=== PATIENT | female | born 1960 | race African-American/Black ===

== ENCOUNTER → 2016-12-04 | Outpatient (CLI) | payer BC ==
[2016-09-21 10:17] VITALS: BP 148/78
[~2016-12-04] MED LIST: CYCL10TA2 PO; NAPR375T3 PO
--- NOTE | 2016-12-04 13:36 | RAD ---
DATE: 12/04/2016 EXAM: DIGITAL SCREEN BILAT W/CAD HISTORY: Routine screening COMPARISON: 06/15/2015 This study was interpreted with the benefit of Computerized Aided Detection (CAD). FINDINGS: There are scattered fibroglandular densities in the breasts. No new or enlarging breast densities are seen. No suspicious microcalcifications are evident. IMPRESSION: Stable mammograms without evidence of malignancy. BI-RADS CATEGORY: 1 NEGATIVE RECOMMENDED FOLLOW-UP: 12M 12 MONTH FOLLOW-UP PQRS compliance statement: Patient information was entered into a reminder system with a target due date for the next mammogram. Mammography is a sensitive method for finding small breast cancers, but it does not detect them all and is not a substitute for careful clinical examination. A negative mammogram does not negate a clinically suspicious finding and should not result in delay in biopsying a clinically suspicious abnormality. "Our facility is accredited by the [employer] Mammography [employer]."
== END | disposition home or self-care (01) ==
LOC: MAMMO 08:55
PROVIDERS: ATTEND Family Medicine
DX: Z12.31 Encounter for screening mammogram for malignant neoplasm of breast (principal)
CPT/HCPCS: G0202; 77067

== ENCOUNTER → 2016-12-14 | Outpatient (CLI) | payer BC ==
[2016-09-21 10:17] VITALS: BP 148/78
[2016-12-14 07:49] LABS: BASO # 0.1 x10^3/uL (0.0-0.2); BASO % 1 % (0-3); EOS % 3 % (0-3); HEMATOCRIT 39.2 % (36.0-47.0); HEMOGLOBIN 12.8 g/dL (12.0-15.5); LYMPH # 3.9 x10^3/uL (1.0-4.8); LYMPH % 43 % (24-48); MEAN CORPUSCULAR HEMOGLOBIN 29 pg (25-35); MEAN CORPUSCULAR HGB CONC 33 g/dL (31-37); MEAN CORPUSCULAR VOLUME 89 fL (79-100); MONO % 6 % (0-9); NEUT % 47 % (31-73); PLATELET COUNT 296 x10^3/uL (140-400); RED CELL DISTRIBUTION WIDTH 14.2 % (11.5-14.5); WHITE BLOOD COUNT 9.1 x10^3/uL (4.0-11.0)
[2016-12-14 08:07] LABS: ALBUMIN 3.4 g/dL (3.4-5.0); ALBUMIN/GLOBULIN RATIO 0.8 (1.0-1.7); CALCIUM 9.2 mg/dL (8.5-10.1); CREATININE 0.9 mg/dL (0.6-1.0); GFR 77.8; POTASSIUM 4.2 mmol/L (3.5-5.1); TOTAL BILIRUBIN 0.5 mg/dL (0.2-1.0); TOTAL PROTEIN 7.5 g/dL (6.4-8.2)
[2016-12-14 08:08] LABS: CHOLESTEROL/HDL RATIO 2.4
[2016-12-14 13:24] LABS: FSH 130.5 mIU/mL (.); LUTEINIZING HORMONE 49.7 mIU/mL (.)
== END | disposition home or self-care (01) ==
LOC: LAB 07:19
PROVIDERS: ATTEND Family Medicine
DX: I10 Essential (primary) hypertension (principal); E78.5 Hyperlipidemia, unspecified; N95.1 Menopausal and female climacteric states
CPT/HCPCS: 36415; 80053; 80061; 83001; 83002; 85027

== ENCOUNTER → 2017-10-16 | Outpatient (CLI) | payer OTHER | END | disposition home or self-care (01) | LOC: MAMMO 08:04 | DX: Z12.31 Encounter for screening mammogram for malignant neoplasm of breast (principal) | CPT/HCPCS: 77067 ==

== ENCOUNTER → 2017-10-31 | Outpatient (CLI) | payer OTHER ==
[2017-10-31 09:33] LABS: ADD MAN DIFF? NO
[2017-10-31 09:41] LABS: BASO # 0.1 x10^3/uL (0.0-0.2); BASO % 1 % (0-3); EOS # 0.2 x10^3/uL (0.0-0.7); EOS % 3 % (0-3); HEMATOCRIT 41.5 % (36.0-47.0); HEMOGLOBIN 13.7 g/dL (12.0-15.5); LYMPH # 3.3 x10^3/uL (1.0-4.8); LYMPH % 44 % (24-48); MEAN CORPUSCULAR HEMOGLOBIN 29 pg (25-35); MEAN CORPUSCULAR HGB CONC 33 g/dL (31-37); MEAN CORPUSCULAR VOLUME 89 fL (79-100); MONO # 0.4 x10^3/uL (0.0-1.1); MONO % 5 % (0-9); NEUT # 3.6 x10^3uL (1.8-7.7); NEUT % 48 % (31-73); PLATELET COUNT 323 x10^3/uL (140-400); RED BLOOD COUNT 4.68 x10^6/uL (3.50-5.40); RED CELL DISTRIBUTION WIDTH 14.7 % (11.5-14.5); WHITE BLOOD COUNT 7.6 x10^3/uL (4.0-11.0)
[2017-10-31 09:53] LABS: ALBUMIN 3.5 g/dL (3.4-5.0); ALBUMIN/GLOBULIN RATIO 0.8 (1.0-1.7); ALK PHOS 157 U/L (46-116); ALT (SGPT) 27 U/L (14-59); ANION GAP 6 (6-14); AST (SGOT) 21 U/L (15-37); BLOOD UREA NITROGEN 20 mg/dL (7-20); BUN/CREATININE RATIO 22 (6-20); CALCIUM 9.1 mg/dL (8.5-10.1); CARBON DIOXIDE 30 mmol/L (21-32); CHLORIDE 102 mmol/L (98-107); CHOLESTEROL 183 mg/dL (0-200); CREATININE 0.9 mg/dL (0.6-1.0); GFR 77.5; GLUCOSE 98 mg/dL (70-99); HDLC 87 mg/dL (40-60); LDLC 78 mg/dL (0-100); NON-HDL CHOLESTEROL 96 mg/dL (0-129); POTASSIUM 4.4 mmol/L (3.5-5.1); SODIUM 138 mmol/L (136-145); TOTAL BILIRUBIN 0.3 mg/dL (0.2-1.0); TRIGLYCERIDES 88 mg/dL (0-150); VLDLC 18 mg/dL (0-40)
[2017-10-31 10:09] LABS: CHOLESTEROL/HDL RATIO 2.1
== END | disposition home or self-care (01) ==
LOC: LAB 09:16
DX: I10 Essential (primary) hypertension (principal)
CPT/HCPCS: 36415; 80053; 80061; 85025

== ENCOUNTER → 2018-10-09 | Outpatient (CLI) | payer MEDICARE, BC ==
[2016-09-21 10:17] VITALS: BP 148/78
[~2018-10-09] MED LIST changes: +NAPR-695 PO; -NAPR375T3 PO
[2018-10-09 08:15] LABS: BASO % 1 % (0-3); EOS # 0.2 x10^3/uL (0.0-0.7); EOS % 2 % (0-3); HEMATOCRIT 40.8 % (36.0-47.0); HEMOGLOBIN 13.7 g/dL (12.0-15.5); LYMPH # 3.9 x10^3/uL (1.0-4.8); LYMPH % 42 % (24-48); MEAN CORPUSCULAR HEMOGLOBIN 30 pg (25-35); MEAN CORPUSCULAR HGB CONC 34 g/dL (31-37); MEAN CORPUSCULAR VOLUME 90 fL (79-100); MONO # 0.6 x10^3/uL (0.0-1.1); MONO % 6 % (0-9); NEUT # 4.6 x10^3uL (1.8-7.7); NEUT % 49 % (31-73); PLATELET COUNT 302 x10^3/uL (140-400); RED BLOOD COUNT 4.55 x10^6/uL (3.50-5.40); RED CELL DISTRIBUTION WIDTH 14.7 % (11.5-14.5); WHITE BLOOD COUNT 9.3 x10^3/uL (4.0-11.0)
[2018-10-09 08:17] LABS: BILIRUBIN,URINE NEGATIVE (NEG); CLARITY,URINE CLEAR; COLOR,URINE YELLOW; NITRITE,URINE NEGATIVE (NEG); PH,URINE 5.5; PROTEIN,URINE NEGATIVE (NEG-TRACE)
[2018-10-09 08:31] LABS: ALBUMIN 3.4 g/dL (3.4-5.0); ALBUMIN/GLOBULIN RATIO 0.8 (1.0-1.7); CALCIUM 9.4 mg/dL (8.5-10.1); GFR 68.7; POTASSIUM 4.2 mmol/L (3.5-5.1); TOTAL BILIRUBIN 0.5 mg/dL (0.2-1.0); TOTAL PROTEIN 7.9 g/dL (6.4-8.2)
[2018-10-09 08:33] LABS: CHOLESTEROL/HDL RATIO 2.1
[2018-10-09 08:50] LABS: BACTERIA,URINE 0 /HPF (0-FEW); RBC,URINE 0 /HPF (0-2); WBC,URINE 0 /HPF (0-4)
[2018-10-09 19:12] LABS: HEMOGLOBIN A1C 5.7 % (4.8-5.6)
== END | disposition home or self-care (01) ==
LOC: LAB 07:27
PROVIDERS: ATTEND Internal Medicine
DX: I10 Essential (primary) hypertension (principal); E78.5 Hyperlipidemia, unspecified; Z91.89 Other specified personal risk factors, not elsewhere classified; Z79.899 Other long term (current) drug therapy
CPT/HCPCS: 36415; 80053; 80061; 81001; 83036; 84443; 85025

== ENCOUNTER → 2018-10-16 | Outpatient (CLI) | payer MEDICARE, BC ==
[2016-09-21 10:17] VITALS: BP 148/78
--- NOTE | 2018-10-17 07:18 | RAD ---
DATE: 10/16/2018 EXAM: MAMMO CARMEN SCREENING BILATERAL HISTORY: Screening Mammogram COMPARISON: Mammogram 10/16/2017, 12/04/2016, 06/15/2015 This study was interpreted with the benefit of Computerized Aided Detection (CAD). The breast parenchyma shows scattered fibroglandular densities. Breast parenchyma level B. FINDINGS: Bilateral digital 2-D and 3-D tomosynthesis CC and MLO views. There is a mass in the upper outer left breast, anterior depth seen on the CC and MLO views. No suspicious mass, calcification or architectural distortion in the right breast. IMPRESSION: Mass in the upper outer left breast, anterior depth. Spot compression CC and MLO views with same-day ultrasound is recommended for further evaluation. BI-RADS CATEGORY: 0 INCOMPLETE: NEEDS ADDITIONAL IMAGING EVALUATION AND/OR PRIOR MAMMOGRAMS FOR COMPARISON. RECOMMENDED FOLLOW-UP: ADD ADDITIONAL IMAGING PQRS compliance statement: Patient information was entered into a reminder system with a target due date for the next mammogram. Mammography is a sensitive method for finding small breast cancers, but it does not detect them all and is not a substitute for careful clinical examination. A negative mammogram does not negate a clinically suspicious finding and should not result in delay in biopsying a clinically suspicious abnormality. "Our facility is accredited by the [employer] Mammography [employer]."
== END | disposition home or self-care (01) ==
LOC: MAMMO 08:13
PROVIDERS: ATTEND Obstetrics & Gynecology
DX: Z12.31 Encounter for screening mammogram for malignant neoplasm of breast (principal); N63.21 Unspecified lump in the left breast, upper outer quadrant
CPT/HCPCS: 77063; 77067

== ENCOUNTER → 2018-10-30 | Outpatient (CLI) | payer MEDICARE, BC ==
[2016-09-21 10:17] VITALS: BP 148/78
--- NOTE | 2018-10-30 11:05 | RAD ---
DATE: 10/30/2018 EXAM: DIGITAL DIAGNOSTIC LT, BREAST LEFT HISTORY: Suspicious screening study COMPARISON: 10/16/2018 This study was interpreted with the benefit of Computerized Aided Detection (CAD). Breast Density: SCATTERED The breast parenchyma shows scattered fibroglandular densities. Breast parenchyma level B. FINDINGS: Additional spot compression views of the area of suspicion in the upper outer quadrant left breast as well as a straight mediolateral view were obtained and correlated with the screening images. Heterogeneous fibroglandular shadows are present. No discrete breast mass is identified mammographically. Left breast ultrasound, 10/30/2018: A targeted ultrasound exam of the upper outer quadrant of the left breast was performed. At the 2:00 location approximately 5 cm from the nipple there is a small elongated hypoechoic nodule. Its margins are smooth. It is wider than tall. There are low level internal echoes without internal vascularity. It measures 3 x 7 x 9 mm. This has a benign appearance and is probably a complicated cyst or fibroadenoma. No other abnormality was identified in this region. IMPRESSION: Probably benign small left breast nodule as described above. Follow-up left breast ultrasound in 6 months and bilateral mammography at one year is suggested. BI-RADS CATEGORY: 3 PROBABLY BENIGN FINDING(S)-SHORT INTERVAL FOLLOW-UP SUGGESTED RECOMMENDED FOLLOW-UP: 6M 6 MONTH FOLLOW-UP PQRS compliance statement: Patient information was entered into a reminder system with a target due date for the next mammogram. Mammography is a sensitive method for finding small breast cancers, but it does not detect them all and is not a substitute for careful clinical examination. A negative mammogram does not negate a clinically suspicious finding and should not result in delay in biopsying a clinically suspicious abnormality. "Our facility is accredited by the [employer] Mammography [employer]."
== END | disposition home or self-care (01) ==
LOC: MAMMO 10:11
PROVIDERS: ATTEND Obstetrics & Gynecology
DX: R92.8 Other abnormal and inconclusive findings on diagnostic imaging of breast (principal)
CPT/HCPCS: 76641; 77065

== ENCOUNTER → 2018-11-11 | Outpatient (CLI) | payer MEDICARE, BC ==
[2016-09-21 10:17] VITALS: BP 148/78
--- NOTE | 2018-11-11 11:02 | RAD ---
EXAM: Renal sonogram. HISTORY: Renal cyst. TECHNIQUE: Sonographic imaging of the kidneys was performed. COMPARISON: 10/07/2014. FINDINGS: The right kidney measures 10.5 cm [id number]. Left kidney measures 9.3 cm [id number]. There is a 2.9 cm simple appearing left renal cyst. There is no hydronephrosis. The urinary bladder is unremarkable. IMPRESSION: 1. 2.9 cm simple appearing left renal cyst. 2. Otherwise, unremarkable renal sonogram. Electronically signed by: Maty Hill MD (11/11/2018 10:59 AM) [facility]
== END | disposition home or self-care (01) ==
LOC: US 07:09
PROVIDERS: ATTEND Obstetrics & Gynecology
DX: N28.1 Cyst of kidney, acquired (principal)
CPT/HCPCS: 76770

== ENCOUNTER → 2019-04-29 | Outpatient (CLI) | payer MEDICARE, BC ==
[2016-09-21 10:17] VITALS: BP 148/78
--- NOTE | 2019-04-29 15:51 | RAD ---
INDICATION: 58 year-old female presents for short interval follow-up of an abnormality seen on prior breast imaging TECHNIQUE: Targeted high resolution sonography of the left breast was performed. COMPARISON: None FINDINGS: At the 2:00 position approximately 5 cm from the nipple a 7 x 8 x 4 mm hypoechoic gently lobulated hypoechoic structure with mild enhanced through transmission and heterogeneous internal echoes. This may represent complex cyst or solid lesion and therefore short interval follow-up is recommended. IMPRESSION: Probably benign finding. RECOMMENDATION: Recommend 6 month ultrasound and mammogram follow up. The patient will be due for bilateral breast imaging at that time. BI-RADS 3: Probably Benign Electronically signed by: Robert Roach MD (04/29/2019 3:48 PM) [facility]
== END | disposition home or self-care (01) ==
LOC: US 07:59
PROVIDERS: ATTEND Obstetrics & Gynecology
DX: R92.8 Other abnormal and inconclusive findings on diagnostic imaging of breast (principal)
CPT/HCPCS: 76641

== ENCOUNTER → 2020-03-01 | Outpatient (CLI) | payer MEDICARE ==
[2016-09-21 10:17] VITALS: BP 148/78
[2020-03-01 13:04] LABS: ALBUMIN 3.5 g/dL (3.4-5.0); ALBUMIN/GLOBULIN RATIO 0.9 (1.0-1.7); CALCIUM 8.7 mg/dL (8.5-10.1); CHOLESTEROL/HDL RATIO 2.2; GFR 68.2; POTASSIUM 4.2 mmol/L (3.5-5.1); TOTAL BILIRUBIN 0.4 mg/dL (0.2-1.0); TOTAL PROTEIN 7.5 g/dL (6.4-8.2)
== END | disposition home or self-care (01) ==
LOC: LAB 12:06
PROVIDERS: ATTEND Internal Medicine Interventional Cardiology
DX: E78.5 Hyperlipidemia, unspecified (principal); E83.32 Hereditary vitamin D-dependent rickets (type 1) (type 2); I10 Essential (primary) hypertension; R87.810 Cervical high risk human papillomavirus (HPV) DNA test positive
CPT/HCPCS: 36415; 80053; 80061; 82306

== ENCOUNTER → 2020-03-05 | Outpatient (CLI) | payer MEDICARE ==
[2016-09-21 10:17] VITALS: BP 148/78
[2020-03-05 10:38] LABS: BASO # 0.1 x10^3/uL (0.0-0.2); BASO % 1 % (0-3); EOS # 0.4 x10^3/uL (0.0-0.7); EOS % 4 % (0-3); HEMATOCRIT 39.4 % (36.0-47.0); HEMOGLOBIN 13.2 g/dL (12.0-15.5); LYMPH # 3.7 x10^3/uL (1.0-4.8); LYMPH % 38 % (24-48); MEAN CORPUSCULAR HEMOGLOBIN 30 pg (25-35); MEAN CORPUSCULAR HGB CONC 33 g/dL (31-37); MEAN CORPUSCULAR VOLUME 89 fL (79-100); MONO # 0.6 x10^3/uL (0.0-1.1); MONO % 6 % (0-9); NEUT # 4.9 x10^3/uL (1.8-7.7); NEUT % 51 % (31-73); PLATELET COUNT 331 x10^3/uL (140-400); RED BLOOD COUNT 4.44 x10^6/uL (3.50-5.40); RED CELL DISTRIBUTION WIDTH 14.1 % (11.5-14.5); WHITE BLOOD COUNT 9.7 x10^3/uL (4.0-11.0)
== END | disposition home or self-care (01) ==
LOC: LAB 10:11
PROVIDERS: ATTEND Internal Medicine
DX: M19.079 Primary osteoarthritis, unspecified ankle and foot (principal); Z79.899 Other long term (current) drug therapy
CPT/HCPCS: 36415; 85025

== ENCOUNTER → 2020-03-10 | Outpatient (CLI) | payer BC, MEDICARE ==
[2016-09-21 10:17] VITALS: BP 148/78
--- NOTE | 2020-03-10 14:39 | RAD ---
DATE: 03/10/2020 12:56 PM EXAM: MAMMO CARMEN TIGRE LEAL, BREAST LEFT HISTORY: short-term imaging followup of a probably benign finding in the left breast. COMPARISON: Left breast ultrasound of 04/29/2019, bilateral mammograms of 10/16/2017 and 10/16/2018, left diagnostic mammogram of 10/30/2018 Bilateral CC and MLO views of the breasts were performed. Bilateral breast tomosynthesis was performed in CC and MLO projections. This study was interpreted with the benefit of Computerized Aided Detection (CAD). Targeted ultrasound of the left breast was also performed in the area of previous sonographic interest. FINDINGS: Breast Density: SCATTERED The breast parenchyma shows scattered fibroglandular densities. Breast parenchyma level B No suspicious masses, microcalcifications or architectural distortion is present to suggest malignancy in either breast. The visualized axillae are unremarkable. Targeted ultrasound of the left breast reveals no change in the oval circumscribed parallel orientation hypoechoic nodule measuring 7 mm at the 2:00 position 5 cm from the nipple, compatible with a fibroadenoma or mildly corticated cyst. No suspicious sonographic findings. IMPRESSION: Benign findings on bilateral mammogram and targeted left breast ultrasound. No evidence of malignancy. BI-RADS CATEGORY: 2 BENIGN FINDING(S) RECOMMENDED FOLLOW-UP: 12M 12 MONTH FOLLOW-UP Annual screening mammography is recommended, unless clinically indicated sooner based on symptoms or change in physical exam. Discussed with patient. PQRS compliance statement: Patient information was entered into a reminder system with a target due date 03/11/2021 for the next mammogram. Mammography is a sensitive method for finding small breast cancers, but it does not detect them all and is not a substitute for careful clinical examination. A negative mammogram does not negate a clinically suspicious finding and should not result in delay in biopsying a clinically suspicious abnormality. "Our facility is accredited by the [employer] Mammography [employer]."
== END | disposition home or self-care (01) ==
LOC: MAMMO 12:45
PROVIDERS: ATTEND Obstetrics & Gynecology
DX: R92.2 Inconclusive mammogram (principal)
CPT/HCPCS: 76641; 77066; G0279; 77062

== ENCOUNTER → 2020-04-27 | Outpatient (CLI) | payer MEDICARE ==
[2016-09-21 10:17] VITALS: BP 148/78
--- NOTE | 2020-04-27 08:54 | RAD ---
Retroperitoneal ultrasound, complete INDICATION: Elevated alkaline phosphatase COMPARISON: 11/11/2018 retroperitoneal ultrasound TECHNIQUE: Grayscale and color Doppler imaging of the retroperitoneum focused on the kidneys and urinary bladder was performed FINDINGS: The right kidney measures 9.7 x 4.4 x 3.3 cm and demonstrates normal cortical thickness with no masses, shadowing stones or hydronephrosis. Left kidney measures 10.0 x 5.4 x 5.0 cm and again demonstrates a lateral superior pole 3 cm simple cyst, not significantly changed from the previous retroperitoneal ultrasound. No shadowing stones, hydronephrosis or solid masses identified. The urinary bladder is unremarkable. IMPRESSION: No hydronephrosis or hydroureter with incidental superior pole left renal cyst unchanged at 3 cm. This does not require any further imaging follow-up. Electronically signed by: Renata Lopez MD (04/27/2020 8:52 AM) [id number]
== END | disposition home or self-care (01) ==
LOC: US 08:13
PROVIDERS: ATTEND Internal Medicine
DX: R74.8 Abnormal levels of other serum enzymes (principal)
CPT/HCPCS: 76770

== ENCOUNTER → 2020-10-27 | Outpatient (CLI) | payer MEDICARE ==
[2016-09-21 10:17] VITALS: BP 148/78
[2020-10-27 15:57] LABS: BASO # 0.1 x10^3/uL (0.0-0.2); BASO % 1 % (0-3); EOS # 0.1 x10^3/uL (0.0-0.7); EOS % 2 % (0-3); HEMOGLOBIN 13.4 g/dL (12.0-15.5); LYMPH # 2.9 x10^3/uL (1.0-4.8); LYMPH % 41 % (24-48); MEAN CORPUSCULAR HEMOGLOBIN 29 pg (25-35); MEAN CORPUSCULAR HGB CONC 33 g/dL (31-37); MEAN CORPUSCULAR VOLUME 88 fL (79-100); MONO # 0.4 x10^3/uL (0.0-1.1); MONO % 6 % (0-9); NEUT # 3.6 x10^3/uL (1.8-7.7); NEUT % 50 % (31-73); PLATELET COUNT 296 x10^3/uL (140-400); RED BLOOD COUNT 4.65 x10^6/uL (3.50-5.40); RED CELL DISTRIBUTION WIDTH 14.4 % (11.5-14.5); WHITE BLOOD COUNT 7.2 x10^3/uL (4.0-11.0)
[2020-10-27 16:18] LABS: CALCIUM 9.4 mg/dL (8.5-10.1); CREATININE 1.1 mg/dL (0.6-1.0); GFR 60.9; TOTAL BILIRUBIN 0.6 mg/dL (0.2-1.0)
[2020-10-27 16:19] LABS: CHOLESTEROL/HDL RATIO 2.5
[2020-10-28 01:25] LABS: HEMOGLOBIN A1C 5.6 % (4.8-5.6)
== END ==
LOC: LAB 14:57
PROVIDERS: ATTEND Internal Medicine
DX: I10 Essential (primary) hypertension (principal); R79.89 Other specified abnormal findings of blood chemistry; Z91.89 Other specified personal risk factors, not elsewhere classified
CPT/HCPCS: 36415; 80053; 80061; 82306; 83036; 84443; 85025

== ENCOUNTER → 2021-03-14 | Outpatient (CLI) | payer MEDICARE ==
[2016-09-21 10:17] VITALS: BP 148/78
--- NOTE | 2021-03-14 12:38 | RAD ---
EXAM: Bilateral digital screening mammogram with tomosynthesis. HISTORY: 60-year-old female presents for screening mammography. TECHNIQUE: Full-field digital craniocaudal and mediolateral oblique 2D and 3D tomosynthesis images of both breasts are obtained for evaluation. Computer aided detection was applied. COMPARISON: 10/16/2018 BREAST PARENCHYMAL DENSITY: Level B - Scattered fibroglandular densities. FINDINGS: There is no new suspicious mass, microcalcification or region of architectural distortion. IMPRESSION: BI-RADS Category 2: Benign finding(s). RECOMMENDATION: Annual mammography is recommended. If your mammogram demonstrates that you have dense breast tissue, which could hide abnormalities, and if you have other risk factors for breast cancer that have been identified, you might benefit from s upplemental screening tests that may be suggested by your ordering physician. Dense breast tissue, i n and of itself, is a relatively common condition. This information is not provided to cause undue c oncern, but rather to raise your awareness and to promote discussion with your physician regarding th e presence of other risk factors, in addition to dense breast tissue. A report of your mammography re sults will be sent to you and your physician. You should contact your physician if you have any ques tions or concerns regarding this report. Mammography is a sensitive method for finding small breast cancers, but it does not detect them all a nd is not a substitute for careful clinical examination. A negative mammogram does not negate a clin ically suspicious finding and should not result in delay in biopsying a clinically suspicious abnorma lity. PQRS compliance statement - Patient information was entered into a reminder system with a target due date for the next mammogram. "Our facility is accredited by the [employer] Mammography [employer]." Electronically signed by: Maty Hill MD (03/14/2021 12:35 PM) [id number]
== END ==
LOC: MAMMO 12:50
PROVIDERS: ATTEND Internal Medicine
DX: Z12.31 Encounter for screening mammogram for malignant neoplasm of breast (principal)
CPT/HCPCS: 77063; 77067

== ENCOUNTER → 2021-12-05 | Outpatient (CLI) | payer MEDICARE ==
[2016-09-21 10:17] VITALS: BP 148/78
[~2021-12-05] MED LIST changes: +CYCL10TA19 PO; -CYCL10TA2 PO
[2021-12-05 08:35] LABS: BASO # 0.1 x10^3/uL (0.0-0.2); BASO % 1 % (0-3); EOS # 0.4 x10^3/uL (0.0-0.7); EOS % 5 % (0-3); HEMATOCRIT 41.2 % (36.0-47.0); HEMOGLOBIN 13.5 g/dL (12.0-15.5); LYMPH % 52 % (24-48); MEAN CORPUSCULAR HEMOGLOBIN 29 pg (25-35); MEAN CORPUSCULAR HGB CONC 33 g/dL (31-37); MEAN CORPUSCULAR VOLUME 89 fL (79-100); MONO # 0.6 x10^3/uL (0.0-1.1); MONO % 6 % (0-9); NEUT # 3.4 x10^3/uL (1.8-7.7); NEUT % 36 % (31-73); PLATELET COUNT 302 x10^3/uL (140-400); RED BLOOD COUNT 4.62 x10^6/uL (3.50-5.40); RED CELL DISTRIBUTION WIDTH 14.3 % (11.5-14.5); WHITE BLOOD COUNT 9.5 x10^3/uL (4.0-11.0)
[2021-12-05 08:52] LABS: BACTERIA,URINE 0 /HPF (0-FEW); BILIRUBIN,URINE NEGATIVE (NEG); CLARITY,URINE CLEAR; COLOR,URINE YELLOW; NITRITE,URINE NEGATIVE (NEG); PROTEIN,URINE NEGATIVE (NEG-TRACE); RBC,URINE 0 /HPF (0-2); UROBILINOGEN,URINE 0.2 mg/dL (0.2 mg/dL); WBC,URINE 0 /HPF (0-4)
[2021-12-05 08:54] LABS: ALBUMIN 4.1 g/dL (3.4-5.0); ALBUMIN/GLOBULIN RATIO 1.1 (1.0-1.7); CALCIUM 8.9 mg/dL (8.5-10.1); CREATININE 1.2 mg/dL (0.6-1.0); GFR 54.9; POTASSIUM 4.2 mmol/L (3.5-5.1); TOTAL BILIRUBIN 0.5 mg/dL (0.2-1.0); TOTAL PROTEIN 7.9 g/dL (6.4-8.2)
[2021-12-05 08:57] LABS: CHOLESTEROL/HDL RATIO 2.8
[2021-12-06 00:07] LABS: HEMOGLOBIN A1C 5.6 % (4.8-5.6)
== END ==
LOC: LAB 07:57
PROVIDERS: ATTEND Internal Medicine
DX: I10 Essential (primary) hypertension (principal); Z91.89 Other specified personal risk factors, not elsewhere classified; Z79.899 Other long term (current) drug therapy
CPT/HCPCS: 36415; 80053; 80061; 81001; 83036; 84443; 85025